=== PATIENT | female | born 1955 | race Caucasian/White ===

== ENCOUNTER → 2017-01-15 | Day surgery (SDC) | payer MEDICARE, OTHER ==
[~2017-01-15] MED LIST: ANUSOL-HC21 GM; ATIVAN PO; BENTYL10 MG DOB; BENTYL20 MG; BIOTIN1000 MCG; CARAFATE PO; CETIRIZINE HCL10 MG PO; CIPRO PO; CLARITIN10 M2 PO; CYMBALTA PO; CYMBALTA30 MG PO; DARVOCET-N 1001 TAB PO; DESYREL100 MG DOB; HCTZ PO; HYOMAX-SL0.125 MG SL; HYOMAX-SR0.375 MG PO; HYOSCYAMINE0.375 M4 PO; JANUVIA PO; JANUVIA50 MG PO; KETOPROFEN PO; LEVSIN PO; LOMOTIL TABLET1 TAB; LOPRESSOR PO; METOPROLOL TAR25 MG PO; MONTELUKAST SOD10 MG PO; NORVASC PO; ONGLYZA2.5 MG; PANTOPRAZOLE SO40 MG PO; PEPTO-BISM525 MG/15 PO; PHENERGAN SUPP25 M1 PR; PHENERGAN25 M1; PHENERGAN25 M1 DOB; PHENERGAN25 MG PO; PREVACID PO; PROTONIX PO; TOPROL XL 50 MG50 MG PO; TOPROL XL PO; TRAZODONE HCL100 MG PO; TRAZODONE PO; VICTOZA0.6 MG/0.1 SQ; VITAMIN B-12 INJ; VOLTAREN75 MG PO; VYTORIN 10-10 M1 TAB PO; VYTORIN 10/20 M1 TAB PO; VYTORIN 10/20 T1 TAB PO; ZETIA; ZOCOR20 MG PO; ZOFRAN ODT4 MG SL; ZYRTEC PO
--- NOTE | ~2017-01-15 | OR ---
Unit #: [id number] #: [id number] Patient: CLARY BROWN [id number] [address] [place], [place] [address] [id number] O MR#: [id number] NAME: CLARY BROWN. ROOM: Date of Procedure: 01/15/2017 Admission Date: 01/15/2017 Surgeon: Rowdy Kennedy M.D. : 1955 Attending Physician: Rowdy Kennedy M.D. Primary Care Physician: Mikhail Weller M.D. OPERATIVE REPORT PREOPERATIVE DIAGNOSES The patient has presented for surveillance for Mckeon esophagus. She has personal history of short segment of Mckeon esophagus. PROCEDURES PERFORMED Upper gastrointestinal endoscopy and biopsy. POSTOPERATIVE DIAGNOSES 1. Mild antral gastritis. This was in the form of antral erythema, which was diffuse. 2. Short segment of Mckeon esophagus. This was impossible to discern based on endoscopic appearances; however, biopsies are obtained. It is noteworthy of the previous 2 locations, the biopsies are confirmed Mckeon esophagus. SEDATION USED MAC. RECOMMENDATIONS The patient will continue on once a day Protonix for gastroesophageal reflux related symptoms, which are controlled on once a day Protonix. DESCRIPTION OF PROCEDURE Following detailed explanation of potential risks and complications of an upper endoscopy, namely perforation, bleeding, and complications related to sedation, the patient was brought to GI lab and laid in the left lateral decubitus position. Lubricated tip of the Olympus video upper endoscope was passed through the bite block into the proximal esophagus under direct vision. The entire esophageal mucosa was examined. The patient was noted to have no tongues of columnar mucosa except for a single tiny tongue of mucosa ascending above the gastroesophageal junction. If its the Mckeon esophagus, certainly suggestive of short segment. No hiatus hernia was noted. No esophagitis was seen. The scope was then advanced into the gastric cavity and the latter was insufflated. Mucosa of the fundus, body, and antrum was examined, the patient was noted to have mild diffuse prepyloric antral erythema indicating antral gastritis. Pylorus was intubated with visualization of the normal duodenal bulb and second and third part of the duodenum. Upon withdrawal and retroflexion, incisura, cardia, and greater curve examined and biopsy obtained from the antrum for CLOtest. The scope was then withdrawn in the distal esophagus. Biopsies obtained from the GE junction and the distal esophagus and sent for histology. The entire esophageal mucosa was Unit #: [id number] #: [id number] Patient: CLARY BROWN examined all the way up to pharynx. No additional findings noted. The patient tolerated the procedure without any postprocedure complications. Dictated by... Ancelmo Duarte/isma TD: 01/16/2017 03:26 JOB #: [id number] OPERATIVE REPORT X Rowdy Kennedy MD X PROCEDURE OPERATIVE NOTE
== END | disposition home or self-care (01) ==
LOC: COPS 11:32
DX: K21.0 Gastro-esophageal reflux disease with esophagitis (principal); K22.70 Barrett's esophagus without dysplasia; K29.70 Gastritis, unspecified, without bleeding; Z98.51 Tubal ligation status; Z90.49 Acquired absence of other specified parts of digestive tract; Z87.440 Personal history of urinary (tract) infections; Z87.19 Personal history of other diseases of the digestive system; I34.1 Nonrheumatic mitral (valve) prolapse; Z88.0 Allergy status to penicillin; Z88.2 Allergy status to sulfonamides
CPT/HCPCS: 82947; 87077; 88305; J2250